=== PATIENT | male | born 1980 | race Caucasian/White ===

== ENCOUNTER 2016-10-19 20:47 | Emergency (ER) | payer OTHER ==
[~2016-10-19] VITALS: Ht 185.4 cm; Wt 142.0 kg
[2016-10-19 21:02] VITALS: BP 135/80; PULSE 87; RESP 18; TEMP 98; O2SAT 98
--- NOTE | 2016-10-19 21:42 | PD ---
HPI Chief Complaint: Edema Time Seen by Provider: 21:42 Travel History International Travel<30 days: No Contact w/Intl Traveler<30days: No Traveled to known affect area: No History of Present Illness HPI 36-year-old male presents to the emergency Department with bilateral lower extremity edema, and discomfort which is developed over the last several days. Patient also complains of a sore throat which is noted for approximately 2 days. Patient denies fever, headache, postnasal drip, ear pain, or productive cough. Patient states he has a history of bilateral pedal edema in the past several years ago while in [place] which she was treated with Lasix with good effect. Patient denies chest pain or shortness of breath, although his girlfriend states he has sleep apnea which he does not treat, and has recently had a swollen uvula which was noted to be red the last couple of days although the swelling has improved today. Patient denies chest pain or history of cardiac problems. Denies valvular issues or heart murmur. Patient is unsure if he is or any kidney trouble. He does admit to eating increased amount of salt recently with making brine pickles. Patient denies increased pain with ambulation or pain in either calf. Patient is allergic to contrast media but no medications. [facility] Social History Alcohol Use: Yes Tobacco Use: Yes Substance Use: No Allergies-Medications (Allergen,Severity, Reaction): Coded Allergies: Contrast Media (Verified Adverse Reaction, Mild, MIGRAINES, 10/19/16) Reported Meds & Prescriptions Reported Meds & Active Scripts Active K-Tab (Potassium Chloride) 10 Meq Tab 10 Meq PO DAILY Furosemide 20 Mg Tab 20 Mg PO DAILY Review of Systems ROS Limitations: Poor Historian Except as stated in HPI: all other systems reviewed are Neg General / Constitutional: No: Fever Eyes: No: Visual changes HENT: No: Headaches Cardiovascular: No: Chest Pain or Discomfort Respiratory: No: Shortness of Breath Gastrointestinal: No: Abdominal Pain Genitourinary: No: Dysuria Musculoskeletal: No: Pain Skin: No Rash Neurologic: No: Weakness Psychiatric: No: Depression Endocrine: No: Polydipsia Hematologic/Lymphatic: No: Easy Bruising Physical Exam Exam Limitations: Poor Historian Narrative GENERAL: Patient appears no acute distress. SKIN: Warm and dry. Normal color. Normal turgor. No rash. No signs of skin breakdown or cellulitis. HEAD: Atraumatic. Normocephalic. EYES: Pupils equal and round. No scleral icterus. No injection or drainage. ENT: No nasal bleeding or discharge. Mucous membranes pink and moist. Posterior pharynx is erythematous, uvula does appear somewhat swollen and erythematous as well. It is midline. There is no significant tonsillitis or exudate. There is no postnasal drip. NECK: Trachea midline. No JVD. Supple nontender without significant lymphadenopathy. CARDIOVASCULAR: Regular rate and rhythm. RESPIRATORY: No accessory muscle use. Clear to auscultation. No wheezes or crackles appreciated. Breath sounds equal bilaterally. GASTROINTESTINAL: Abdomen soft, non-tender, nondistended. Hepatic and splenic margins not palpable. MUSCULOSKELETAL: Extremities without clubbing, cyanosis, patient has 2+ pitting edema to both lower extremities to the mid calf. Negative Homans sign bilaterally. Pulses are 2+ and equal bilaterally and dorsalis peda and posterior tibialis. No obvious deformities. NEUROLOGICAL: Awake and alert. No obvious cranial nerve deficits. Motor grossly within normal limits. Five out of 5 muscle strength in the arms and legs. Normal speech. PSYCHIATRIC: Appropriate mood and affect; insight and judgment normal. Data Data Last Documented VS Vital Signs Date Time Temp Pulse Resp B/P Pulse Ox O2 Delivery O2 Flow Rate FiO2 10/19/16 21:40 18 98 Room Air 10/19/16 21:02 98.0 87 135/80 Orders Electrocardiogram (10/19/16 21:53) Basic Metabolic Panel (Bmp) (10/19/16 21:53) B-Type Natriuretic Peptide (10/19/16 21:53) Complete Blood Count With Diff (10/19/16 21:53) Prothrombin Time / Inr (Pt) (10/19/16 21:53) Act Partial Throm Time (Ptt) (10/19/16 21:53) Chest, Single Ap (10/19/16 21:53) Iv Access Insert/Monitor (10/19/16 21:53) Sodium Chloride 0.9% Flush (Ns Flush) (10/19/16 22:00) Furosemide Inj (Lasix Inj) (10/19/16 22:00) Group A Rapid Strep Screen (10/19/16 21:53) Labs Laboratory Tests Test 10/19/16 22:10 Prothrombin Time 10.0 SEC Prothromb Time International 0.9 RATIO Ratio Activated Partial 29.8 SEC Thromboplast Time Sodium Level 141 MEQ/L Potassium Level 4.0 MEQ/L Chloride Level 108 MEQ/L Carbon Dioxide Level 26.5 MEQ/L Anion Gap 7 MEQ/L Blood Urea Nitrogen 16 MG/DL Creatinine 0.77 MG/DL Estimat Glomerular Filtration 115 ML/MIN Rate Random Glucose 89 MG/DL Calcium Level 8.2 MG/DL B-Type Natriuretic Peptide 32 PG/ML [facility] Medical Decision Making Medical Screen Exam Complete: Yes Emergency Medical Condition: Yes Differential Diagnosis Strep pharyngitis. Uvulitis. Bilateral lower extremity edema. Renal insufficiency. CHF. Fluid retention. Narrative Course Patient is medically stable at time of exam. Rapid strep was sent to the lab. Absorber including CBC, CMP, proBNP, PT PTT and INR. EKG is ordered as well as chest x-ray. IV access is obtained patient is given 40 mg Lasix IV. Chest x-ray shows no acute pulmonary process per radiologist. EKG shows normal sinus rhythm and was reviewed with Dr. Fraser. CBC is unremarkable. CMP is unremarkable. ProBNP was 32. Rapid strep is negative. Patient is felt to be stable be discharged home with Lasix 20 mg daily for 7 days. Patient is also given potassium 10 mEq daily for 7 days. Patient is to keep both his lower extremities elevated as much as possible. He is to be on a low-salt diet. He states Tylenol for his sore throat. Patient is to follow-up with a local primary care physician as soon as possible. Patient can return the emergency Department with worsening symptoms develop as needed. Diagnosis Primary Impression: Pedal edema Additional Impression: Viral pharyngitis Referrals: [facility] Patient Instructions: 2 Gram Sodium Diet (DC), General Instructions, Leg Edema (ED), Pharyngitis (ED) Additional Instructions: Chest x-ray shows no acute pulmonary process per radiologist. EKG shows normal sinus rhythm and was reviewed with Dr. Fraser. CBC is unremarkable. CMP is unremarkable. Rapid strep is negative. Patient is felt to be stable be discharged home with Lasix 20 mg daily for 7 days. Patient is also given potassium 10 mEq daily for 7 days. Patient is to keep both his lower extremities elevated as much as possible. He is to be on a low-salt diet. He states Tylenol for his sore throat. Patient is to follow-up with a local primary care physician as soon as possible. Patient can return the emergency Department with worsening symptoms develop as needed. Med/Other Pt SpecificInfo: Prescription(s) given Scripts Potassium Chloride ER (K-Tab)10 Meq Tab10 Meq PO DAILY #7 TAB Ref 0 Prov:Luke Fraser MD 10/19/16 Furosemide 20 Mg Tab20 Mg PO DAILY #7 TAB Ref 0 Prov:Luke Fraser MD 10/19/16 Disposition: 01 DISCHARGE HOME Condition: Stable Will Finnegan Oct 19, 2016 21:42
[2016-10-19] MEDS ORDERED: FUROSEMIDE 40 MG/4 ML VIAL IV PUSH ONE (22:00)
[2016-10-19] MEDS ORDERED: SODIUM CHLORIDE 0.9% FLUSH 5 ML FLUSH IVF PRN (22:00)
[2016-10-19 22:35] LABS: BICARBONATE 26.5 MEQ/L (21.0-32.0)
[2016-10-19 22:37] LABS: APTT (PATIENT) 29.8 SEC (24.3-30.1); INTERNATIONAL NORMALIZED RATIO 0.9 RATIO
[2016-10-19] MEDS ORDERED: FURO20TA PO (22:41)
[2016-10-19] MEDS ORDERED: K-TA10TA PO (22:41)
--- NOTE | 2016-10-19 22:51 | RADHPO ---
EXAM DATE/TIME: 10/19/2016 21:56 [place] COMPARISON: No previous studies available for comparison. INDICATIONS : Short of breath with bilateral lower leg swelling. MEDICAL HISTORY : None. SURGICAL HISTORY : None. ENCOUNTER: Initial ACUITY: 2 days PAIN SCORE: 2/10 LOCATION: Bilateral chest FINDINGS: A single view of the chest demonstrates the lungs to be symmetrically aerated without evidence of mas s, infiltrate or effusion. The cardiomediastinal contours are unremarkable. Osseous structures are intact. CONCLUSION: No acute disease. Tanner Coreas MD on October 19, 2016 at 22:50 Board Certified Radiologist. This report was verified electronically.
[2016-10-19 22:53] LABS: AUTOMATED NEUTROPHIL # 3.7 TH/MM3 (1.8-7.7); BASOPHIL # 0.1 TH/MM3 (0-0.2); BASOPHIL % 1.6 % (0.0-2.0); EOSINOPHIL # 0.5 TH/MM3 (0-0.4); EOSINOPHIL % 6.2 % (0.0-4.0); HEMATOCRIT 40.1 % (39.0-51.0); HEMO FLAGS DIFF FINAL; LYMPH % 33.3 % (9.0-44.0); LYMPHOCYTE # 2.5 TH/MM3 (1.0-4.8); MEAN CELL VOLUME 92.3 FL (80.0-100.0); MEAN CORPUSCULAR HEMOGLOBIN 30.7 PG (27.0-34.0); MEAN CORPUSCULAR HGB CONC 33.3 % (32.0-36.0); MONO % 8.8 % (0.0-8.0); NEUT % 50.1 % (16.0-70.0); PLATELET COUNT 184 TH/MM3 (150-450); RED BLOOD COUNT 4.34 MIL/MM3 (4.50-5.90); RED CELL DISTRIBUTION WIDTH 13.2 % (11.6-17.2); WHITE BLOOD COUNT 7.5 TH/MM3 (4.0-11.0)
--- NOTE | 2016-10-20 15:08 | EKG ---
Date Performed: 10/19/2016 Time Performed: 22:22:42 PTAGE: 36 years EKG: Sinus rhythm inferior lateral infarct - age undetermined Clinical correlation is recommended Abnormal ECG NO PREVIOUS TRACING DOCTOR: Dimitri Lenz Interpretating Date/Time 10/20/2016 15:06:48
== END 2016-10-19 23:21 | disposition home or self-care (01) ==
LOC: PHEFT 20:47
DX: R60.0 Localized edema (principal); J02.8 Acute pharyngitis due to other specified organisms; R94.31 Abnormal electrocardiogram [ECG] [EKG]; Z72.0 Tobacco use
CPT/HCPCS: 71010; 80048; 83880; 85025; 85610; 85730; 87081; 87880; 93005; 96374; 99284; J1940